=== PATIENT | female | born 1985 | race American Indian/Alaskan Native ===

== ENCOUNTER 2021-04-01 05:53 | Day surgery (SDC) | payer MEDICAID ==
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
[2021-03-30 13:44] LABS: Basophils # (Auto) 0.1 K/mm3 (0.0-0.1); Basophils % (Auto) 0.7 % (0.0-1.8); Eosinophils # (Auto) 0.2 K/mm3 (0.0-0.4); Eosinophils % (Auto) 2.2 % (0.0-4.3); Hematocrit 40.9 % (30.3-42.9); Hemoglobin 13.1 gm/dl (10.1-14.3); Lymphocytes % (Auto) 27.2 % (13.4-35.0); Mean Corpuscular HGB Conc 32 % (30-34); Mean Corpuscular Volume 80 fl (79-97); Monocytes # (Auto) 0.4 K/mm3 (0.0-0.8); Monocytes % (Auto) 5.2 % (0.0-7.3); Platelet Count 220 K/mm3 (140-440); Red Blood Count 5.08 M/mm3 (3.65-5.03); Red Cell Distribution Width 14.8 % (13.2-15.2)
--- NOTE | 2021-04-01 03:25 | Short Stay Summary ---
Short Stay Documentation Date of service: 04/01/21 Narrative H&P: 35y/o presents with pelvic pain and abnormal uterine bleeding accompanied by heavy menstrual flow. Pelvic ultrasound demonstrated a mildly enlarged uterus without evidence of leiomyoma. The patient also reports dyspareunia. She has elected to undergo definitive surgical management. - History Principal diagnosis: Pelvic pain and AUB Past Medical History: other (endometriosis) Past Surgical History: Other (tubal ligation) Social history: single - Allergies and Medications Current Medications: Allergies No Known Allergies Allergy (Verified 03/20/21 16:30) Home Medications Medication Instructions Recorded Confirmed Last Taken Type No Known Home Medications [No 06/25/20 03/20/21 Unknown History Reported Home Medications] Active Medications Acetaminophen (Acetaminophen 500 Mg Tab) 1,000 mg PO ONCE ROCIO Stop: 04/01/21 23:00 Celecoxib (Celecoxib 200 Mg Cap) 400 mg PO PREOP NR Stop: 04/01/21 23:00 Fentanyl (Fentanyl 100 Mcg/2 Ml Inj) 100 mcg IV ONCE ROCIO Stop: 04/01/21 23:00 Gabapentin (Gabapentin 300 Mg Cap) 300 mg PO PREOP NR Stop: 04/01/21 23:00 Lactated Ringer's (Lactated Ringers) 1,000 mls @ 125 mls/hr IV DIRECT ROCIO Magnesium Oxide (Magnesium Oxide 400 Mg Tab) 400 mg PO ONCE ROCIO Stop: 04/01/21 23:00 Methocarbamol (Methocarbamol 750 Mg Tab) 1,500 mg PO ONCE ROCIO Stop: 04/01/21 23:00 Midazolam HCl (Midazolam 2 Mg/2 Ml Inj) 2 mg IV PREOP NR Stop: 04/01/21 23:59 Scopolamine (Scopolamine Transdermal Patch 72 Hr) 1 each TD PREOP NR Stop: 04/01/21 23:00 - Physical exam General appearance: no acute distress Integumentary: no rash HEENT: Atraumatic Lungs: Clear to auscultation Breasts: deferred Heart: Regular rate Gastrointestinal: normal Female Genitourinary: deferred Rectal Exam: deferred Extremities: no ischemia Neurological: Normal gait - Brief post op/procedure progress note Date of procedure: 04/01/21 Pre-op diagnosis: Pelvic pain; abnormal uterine bleeding Post-op diagnosis: same Procedure: Robotic hysterectomy Anesthesia: GETA Surgeon: GARY CHAVES Estimated blood loss: other (150 mL) Pathology: list (Uterus, cervix) Specimen disposition: to lab Condition: stable - Hospital course Hospital course: The patient was admitted the day of surgery underwent a robotic hysterectomy. Please see operative note for details of surgery. Postoperative course was uneventful. - Disposition Condition at discharge: Good Disposition: 01 HOME / SELF CARE / HOMELESS Short Stay Discharge Plan Activity: other (Pelvic rest for 6 weeks) Diet: regular Additional Instructions: Patient may schedule follow-up with Dr. Chaves in 4 weeks Patient may be shower however no tub baths for 4 weeks Pelvic rest for [address] in 2 weeks Prescriptions: Ibuprofen [Motrin] 800 mg PO Q8HR PRN #60 tablet PRN Reason: Pain , Severe (7-10) oxyCODONE /ACETAMINOPHEN [Percocet 5/325] 1 tab PO Q6HR PRN #30 tablet PRN Reason: Pain Ondansetron HCl [Zofran] 4 mg PO Q8H PRN #20 tablet PRN Reason: Nausea
[~2021-04-01 05:53] MED LIST: ceFAZolin/Water 2 GM/20 ML 2 GM/20 ML SYRINGE IV NR
[2021-04-01] MEDS ORDERED: CELECOXIB 200 MG CAP PO NR (06:00)
[2021-04-01] MEDS ORDERED: MAGNESIUM OXIDE 400 MG TAB PO SCH (06:00)
[2021-04-01] MEDS ORDERED: SCOPOLAMINE TRANSDERMAL PATCH 72 HR TD NR (06:00)
[2021-04-01] MEDS ORDERED: LACTATED RINGERS 1,000 ML IV SCH (06:00)
[2021-04-01] MEDS ORDERED: MIDAZOLAM 2 MG/2 ML INJ IV NR (06:00)
[2021-04-01] MEDS ORDERED: GABAPENTIN 300 MG CAP PO NR (06:00)
[2021-04-01] MEDS ORDERED: ACETAMINOPHEN 500 MG TAB PO SCH (06:00)
[2021-04-01] MEDS ORDERED: fentaNYL 100 MCG/2 ML INJ IV SCH (06:00)
[2021-04-01] MEDS ORDERED: BACTERIOSTATIC SODIUM CHLORIDE 0.9% 30 ML VIAL INFILTRATI ONE (06:38)
[2021-04-01] MEDS ORDERED: PROMETHAZINE 25 MG TAB ONE (07:15)
[2021-04-01] MEDS ORDERED: dexAMETHasone 4 MG/ML VIAL ONE (07:15)
[2021-04-01] MEDS ORDERED: BUPIVACAINE/PF (0.25%) 2.5 MG/ML 30 ML VIAL INFILTRATI ONE (07:15)
[2021-04-01] MEDS ORDERED: NEOMY 40 MG/POLYMYXIN B 200,000 UNITS/ML (GU) AMPULE IR ONE ×2 (07:33→09:04)
[2021-04-01] MEDS ORDERED: PHENYLEPHRINE/NS 1,000 MCG/10 ML SYRINGE (OR USE) IV ONE (07:34)
[2021-04-01] MEDS ORDERED: SUCCINYLCHOLINE CHLORIDE 200 MG/10 ML INJ MDV ONE (07:34)
[2021-04-01] MEDS ORDERED: LIDOCAINE MPF (2%) 20 MG/1 ML VIAL 5 ML ONE (07:34)
[2021-04-01] MEDS ORDERED: fentaNYL 100 MCG/2 ML INJ ONE (07:34)
[2021-04-01] MEDS ORDERED: dexAMETHasone 20 MG/5 ML VIAL ONE (07:34)
[2021-04-01] MEDS ORDERED: NEOSTIGMINE 10MG/10 ML INJ MDV ONE (07:34)
[2021-04-01] MEDS ORDERED: ROCURONIUM 50 MG/5 ML INJ IV ONE (07:34)
[2021-04-01] MEDS ORDERED: ONDANSETRON 4 MG/2 ML INJ ONE (07:34)
[2021-04-01] MEDS ORDERED: GLYCOPYRROLATE 0.4 MG/2 ML INJ ONE (07:34)
[2021-04-01] MEDS ORDERED: propofoL 200 MG/20 ML VIAL IV ONE ×2 (07:35→07:59)
[2021-04-01] MEDS ORDERED: ePHEDrine SULFATE 50 MG/1 ML INJ ONE (07:35)
[2021-04-01] MEDS ORDERED: HYDROmorphone 1 MG/1 ML INJ ONE ×2 (08:40→08:49)
[2021-04-01] MEDS ORDERED: SODIUM CHLORIDE 0.9% IRR 1,500 ML BOTTLE IR ONE (09:04)
[2021-04-01] MEDS ORDERED: SODIUM CHLORIDE 0.9% IRRIG SOLN 2000 ML IR ONE (09:05)
--- NOTE | 2021-04-01 09:52 | Operative Report ---
Operative Report Operative Report: Date of surgery: April 01, 2021 Preoperative diagnoses: Chronic pelvic pain; abnormal uterine bleeding Postoperative diagnoses: Same as above Procedure: Robotic hysterectomy; lysis of adhesions Surgeon: Liv Lott M.D. [employer] House Loader:Arline Estevez Anesthesia: Gen. endotracheal anesthesia Estimated blood loss: 150 mL Pathology: Uterus, cervix Indication: 35-year-old -0-0-5 with a history of chronic pelvic pain and abnormal uterine bleeding. The patient failed medical management elected to undergo definitive surgical management. The patient has a history of a prior tubal ligation that likely consisted of a bilateral salpingectomy. Procedure: The patient was taken to the operating room and given general endotracheal anesthesia without complication after a time out was performed confirming the surgery and identity of the patient. She was prepped and draped in a normal sterile fashion. A bivalve speculum was placed in the patient's vagina and a single-tooth tenaculum placed on the anterior lip of the cervix. The uterus was sounded with the uterine sound. A stay suture with 0-vicryl was placed at 12 o'clock on the anterior cervix. A SupportBee uterine manipulator was placed in the bivalve speculum was then removed. A warm laparotomy sponge was placed in the vagina. Attention was then turned to the patient's abdomen where a 12millimeter supra umbilical skin incision was then made. A Veress needle was placed and peritoneal entry was verified water-filled syringe. Insufflation of the peritoneal cavity was performed with CO2 gas. The 12 mm trocar was then placed under direct visualization. An additional 8 mm robotic trocar was placed on the patient's left and right lateral side just opposite of the supraumbilical trocar. An additional 5 mm right lateral trocar was then placed as the accessory port. The supraumbilical 12 mm trocar site was closed with the Anselmo Leon device and 0-vicryl suture. The patient was then placed in steep Trendelenburg. The da Naresh robot was then engaged. A fenestrated forcep was placed in arm 2 and a vessel sealer was placed in arm 1. General survey of the abdomen and pelvis revealed evidence of an omental adhesion to the posterior aspect of the uterus. Lysis of adhesions were performed to release the omentum and bowel. The patient had evidence of surgically absent fallopian tubes bilaterally. The uterus was mildly enlarged likely consistent with adenomyosis. The surgeon then transferred to the surgical console. The mesosalpinx was then isolated on the right. The vessel sealer was used to coagulate the mesosalpinx which was then transected. The tube was transected from the ovary. The tubo- ovarian ligament was then coagulated and transected. The round ligament was then coagulated and transected also. The vesicouterine peritoneum was then entered from the patient's right side. The uterine vessels were then coagulated with the vessel sealer. The vessels were then transected . Attention was then turned to the patient's left side where the tubo-ovarian ligament and mesosalpinx were again isolated coagulated and transected. The vesical peritoneum was then entered from the left and joined in the midline. Peritoneum was reflected off of the lower uterine segment. Uterine vessels were then coagulated and then transected. The blood supply to the uterus was adequately contained, a posterior colpotomy was made. The V care ring was visualized. Posterior colpotomy was created with the monopolar scissors. The incision was continued circumferentially until anterior colpotomy was made. The cervix and uterus were amputated from the vaginal cuff. The uterus was then removed along with the tubes bilaterally through the vagina and a warm laparotomy sponge was placed and maintain the pneumoperitoneum. The vaginal cuff was then closed in a running fashion with V lock suture. Irrigation of the pelvis was performed. Hemoblast was applied to the incision. The PlaySighti robot was undocked. The trocars were removed and the insuffliation was released. The skin was then reapproximated with 4-0 Monocryl. The tissue was sent to pathology which included the cervix, and uterus. The patient was then successfully extubated. She was then taken to the recovery room in stable condition. All sponge laps and needle counts were correct x2.
[2021-04-01] MEDS ORDERED: ONDANSETRON 4 MG/2 ML INJ IV PRN (10:11)
[2021-04-01] MEDS: HYDROmorphone 1 MG/1 ML INJ IV PRN ×2 (10:35→10:45)
[2021-04-01 12:04] VITALS: BP 153/90
--- NOTE | 2021-04-01 17:58 | Post Anesthesia Evaluation ---
- Post Anesthesia Evaluation Patient Participated: Yes Airway Patent: Yes Stable Respiratory Function: Yes Nausea/Vomiting: No Temp > 96.8F: Yes Pain Manageable: Yes Adequeate Hydration: Yes Anesthesia Complications: No Block Receding Appropriately: Yes Patient on Ventilator: No
== END 2021-04-01 12:10 | disposition home or self-care (01) ==
LOC: OR 05:53
PROVIDERS: ATTEND Obstetrics & Gynecology
DX: N93.8 Other specified abnormal uterine and vaginal bleeding (principal); R10.2 Pelvic and perineal pain; D25.9 Leiomyoma of uterus, unspecified; N72 Inflammatory disease of cervix uteri; N88.8 Other specified noninflammatory disorders of cervix uteri; G89.29 Other chronic pain; N73.6 Female pelvic peritoneal adhesions (postinfective); Z20.822 Contact with and (suspected) exposure to COVID-19; E66.9 Obesity, unspecified; Z79.899 Other long term (current) drug therapy; Z98.890 Other specified postprocedural states
CPT/HCPCS: 36415; 58554; 64450; 84703; 85025; 86850; 86900; 86901; 88307; J0330; J0690; J1100; J1170; J1815; J2250; J2370; J2405; J2704; J2710; J3010; J3490; J7120; Q0169; S2900; U0003